=== PATIENT | male | born 1965 ===

== ENCOUNTER 2023-08-07 08:34 | Outpatient (RCR) | payer BC, SELFPAY | END 2023-08-07 23:59 | disposition home or self-care (01) | LOC: RPT 08:34 | PROVIDERS: ATTENDING PHYSICIAN Urology | DX: R39.81 Functional urinary incontinence (principal); R27.8 Other lack of coordination; M62.81 Muscle weakness (generalized); C61 Malignant neoplasm of prostate; Z73.6 Limitation of activities due to disability | CPT/HCPCS: 97162; 97530 ==

== ENCOUNTER 2023-09-04 06:15 | Outpatient (RCR) | payer BC, SELFPAY | END 2023-09-04 23:59 | disposition home or self-care (01) | LOC: RPT 06:15 | PROVIDERS: ATTENDING PHYSICIAN Urology | DX: N39.3 Stress incontinence (female) (male) (principal); C61 Malignant neoplasm of prostate; R27.8 Other lack of coordination; M62.81 Muscle weakness (generalized); Z73.6 Limitation of activities due to disability | CPT/HCPCS: 97112; 97530 ==

== ENCOUNTER 2023-10-06 13:53 | Outpatient (RCR) | payer BC, SELFPAY | END 2023-10-06 23:59 | disposition home or self-care (01) | LOC: RPT 13:53 | PROVIDERS: ATTENDING PHYSICIAN Urology | DX: C61 Malignant neoplasm of prostate (principal); R39.81 Functional urinary incontinence; R27.8 Other lack of coordination; N39.3 Stress incontinence (female) (male); M62.81 Muscle weakness (generalized); Z73.6 Limitation of activities due to disability | CPT/HCPCS: 97530 ==